=== PATIENT | male | born 1985 | race Caucasian/White ===

== ENCOUNTER 2018-05-23 09:15 | Emergency (ER) | payer OTHER ==
[~2018-05-23] VITALS: Ht 185.4 cm; Wt 84.1 kg
[2018-05-23 10:09] VITALS: BP 117/71
== END 2018-05-23 10:12 | disposition home or self-care (01) ==
LOC: ED 09:15
DX: H16.001 Unspecified corneal ulcer, right eye (principal); F17.200 Nicotine dependence, unspecified, uncomplicated